=== PATIENT | female | born 1985 | race African-American/Black ===

== ENCOUNTER 2022-05-16 09:05 | Emergency (ER) | payer SELFPAY ==
[2022-05-16 09:11] VITALS: BP 120/71; PULSE 72; RESP 16; TEMP 36.4; O2SAT 100
--- NOTE | 2022-05-16 09:19 | ED.SKABFB ---
HPI - Skin/Abscess/Foreign Bdy General Chief complaint: Skin/Abscess/Foreign Body Stated complaint: rash/moscoso Time Seen by Provider: 05/16/22 09:19 Source: patient Mode of arrival: ambulatory Limitations: no limitations History of Present Illness HPI narrative: 37-year-old female presented for complaint of skin lesions to left lateral knee since yesterday. She states she is concerned she has monkeypox. Reports headache. Denies fatigue, fever, lymph node swelling or myalgia. Lesions are mildly itchy, no pain or drainage. No other lesions to body. Denies recent sexual contact. MD complaint: rash Related Data Home Medications Medication Instructions Recorded Confirmed norgestimate 0.25 mg-ethinyl 1 tablet PO DAILY 05/16/22 05/16/22 estradiol 35 mcg tablet (Sprintec (28)) Allergies Allergy/AdvReac Type Severity Reaction Status Date / Time No Known Allergies Allergy Mild Verified 05/16/22 09:10 Review of Systems Review of Systems: CONSTITUTIONAL: Denies body aches, fever, chills, or sweats. EYES: Denies visual changes, redness, or discharge. ENT: Denies rhinorrhea, congestion, sore throat, or otalgia. CARDIOVASCULAR: Denies chest pain, palpitations, or edema. RESPIRATORY: Denies cough or dyspnea. GASTROINTESTINAL: Denies abdominal pain, nausea, vomiting, or diarrhea. GENITOURINARY: Denies dysuria or hematuria. SKIN: reports rash, itching MUSCULOSKELETAL: Denies back pain, joint pain, or myalgia. NEUROLOGIC: Denies numbness, tingling, or weakness. [facility] Social History Social History Alcohol intake: current Comments At time of signature, I have reviewed and agree with nursing past medical, surgical, social and family history unless otherwise noted. Please see nursing chart for further information. There is no relevant family history pertinent to the presenting complaint Exam Narrative: GENERAL: Well-appearing EYES: conjunctivae clear, and EOMI. ENT: Mucous membranes moist. Oropharynx without edema, erythema or lesions. NECK: Supple. No lymphadenopathy CHEST: Clear to auscultation. No respiratory distress. HEART: Regular rate and rhythm. SKIN: Warm, dry. Left lateral knee with 4 pinpoint raised skin lesions c/w folliculitis, no redness, induration, fluctuance or drainage; nontender NEURO: Alert and oriented x3. PSYCH:tearful Course Course Emergency Course: Patient is aware of diagnosis, understands and agrees to treatment plan. Anticipatory guidance given. Patient agrees to follow-up as directed and is aware of reasons to seek care at the emergency department. Portions of this record may have been created with voice recognition software Level of Care: Express Care Visit Vital Signs Vital signs: Vital Signs Temperature 97.6 F 05/16/22 09:11 Pulse Rate 72 05/16/22 09:11 Respiratory Rate 16 05/16/22 09:11 Blood Pressure 120/71 05/16/22 09:11 Pulse Oximetry 100 05/16/22 09:11 Oxygen Delivery Room Air 05/16/22 09:11 Temperature 97.6 F 05/16/22 09:11 Pulse Rate 72 05/16/22 09:11 Respiratory Rate 16 05/16/22 09:11 Blood Pressure 120/71 05/16/22 09:11 Pulse Oximetry 100 05/16/22 09:11 Oxygen Delivery Room Air 05/16/22 09:11 Reviewed MDM - Skin/Abscess/Foreign Bdy MDM Narrative Medical decision making narrative: Does not appear at this time to be erythema multiforme, bullous, SJS, TEN, or monkeypox. Provided reassurance and supportive measures. Patient looks well. Instructed patient to go to nearest ER immediately for any worsening symptoms including but not limited to: fever, spreading rash, pain, sore throat, headache, dizziness, chest pain, trouble breathing, or any symptoms concerning to the patient. Differential Diagnosis Differential diagnosis: Likely abscess of skin or subcutaneous tissue, urticaria, herpes zoster, cellulitis and contact dermatitis Discharge Plan Discharge Clinical Imp
== END 2022-05-16 09:38 | disposition home or self-care (01) ==
PROVIDERS: Emergency Provider Nurse Practitioner Family
DX: L73.9 Follicular disorder, unspecified (principal); E28.2 Polycystic ovarian syndrome
CPT/HCPCS: 99211; G0463

== ENCOUNTER 2024-12-29 14:27 | Emergency (ER) | payer OTHER, SELFPAY ==
--- NOTE | ~2024-12-29 | CT_ITS ---
History: Migraine PROCEDURE: CT head without contrast. COMPARISON: None TECHNIQUE: Axial imaging of the head performed from the skull base to the vertex without IV contrast. Sagittal a nd coronal reformations obtained. DLP: 681 mGy-cm FINDINGS: The ventricles are normal in size, shape and position. There is no mass, mass effect or midline shift. There is no abnormal extra-axial fluid collection or intracranial hemorrhage. Visualized paranasal sinuses are clear. The mastoid air cells are well aerated. No acute displaced fractures within the overlying cranium. Impression: No acute intracranial hemorrhage or suspicious mass effect. Reviewed, dictated and finalized at location A. Impression: No acute intracranial hemorrhage or suspicious mass effect.
[2024-12-29 14:35] VITALS: BP 150/85; PULSE 80; RESP 20; TEMP 36.2; O2SAT 98
[2024-12-29 15:12] VITALS: BP 133/95; PULSE 79; RESP 14; TEMP 36.6; O2SAT 100
[2024-12-29 15:18] VITALS: O2SAT 100
[2024-12-29 15:22] LABS: Basophils Percent Auto 0.7 % (0.2-1.2); Eosinophils Absolute Auto 0.2 K/mm3 (0-0.3); Eosinophils Percent Auto 2.6 % (0-4.4); Hemoglobin 12.8 g/dL (12.0-15.0); Immature Granulocyte Absolute 0.01 K/mm3 (0.00-0.031); Immature Granulocyte Percent A 0.2 % (0-0.5); Lymphocytes Absolute Auto 2.88 K/mm3 (0.9-3.2); Lymphocytes Percent Auto 49.5 % (18.3-44.2); Mean Corpuscular HGB Conc 32.8 g/dl (32-36); Mean Corpuscular Hemoglobin 29.5 pg (26-34); Mean Corpuscular Volume 89.9 fl (80-100); Monocytes Absolute Auto 0.4 K/mm3 (0.1-0.6); Neutrophils Absolute Auto 2.3 K/mm3 (1.3-6.7); Platelet Count Result 254 k/mm3 (150-375); Red Blood Count 4.34 M/mm3 (4.2-5.4); Red Cell Distribution Width 12.4 % (11.5-14.5); White Blood Count 5.8 K/mm3 (4.5-10.0)
[2024-12-29 15:34] LABS: Alanine Aminotransferase 14 U/L (6-35); Albumin Level 4.4 g/dL (3.5-5.1); Alkaline Phosphatase 48 U/L (38-126); Anion Gap 11 mmol/L (4-12); Aspartate Amino Transferase 23 U/L (14-36); Bilirubin,Total 0.4 mg/dL (0.2-1.3); Blood Urea Nitrogen 9 mg/dL (7-17); Carbon Dioxide 25 mmol/L (22-30); Chloride 101 mmol/L (98-107); Estimated CRCL calculation 96 ml/min; Estimated Glomerular Filt Rate > 60; Glucose 98 mg/dL (65-110); Partial Thromboplastin Time 25.9 Seconds (22.3-36.8); Potassium 3.8 mmol/L (3.4-5.0); Prothrombin Time 13.6 Seconds (11.1-14.7); Sodium 137 mmol/L (137-145)
[2024-12-29 15:39] LABS: BEDSIDEPREGUCG Negative (Negative)
[2024-12-29 15:42] VITALS: PULSE 69
[2024-12-29] MEDS: PROCHLORPERAZINE EDISYLATE 10 MG/2 ML VIAL IV PUSH (15:42)
[2024-12-29] MEDS: diphenhydrAMINE HCl INJ 50 MG/ML VIAL IV PUSH (15:42)
[2024-12-29] MEDS: SODIUM CHLORIDE 0.9% IV 1,000 ML 999 ML IV CONT (15:42)
[2024-12-29 15:43] VITALS: BP 121/75; PULSE 74; RESP 16; O2SAT 100
--- OUTSIDE RECORDS SUMMARY | 2024-12-29 15:54 | XMS_ITS | Clinical Summary ---
Author Organization [facility] Address [address] [place] [address] Care Team Providers Care Accounting Methods Analyst Name Role Phone No, Physician Primary Care Provider [phone] Allergies Active Allergy Reactions Criticality Noted Date Comments [place] Seed Swelling Medium 06/24/2017 Medications norgestimate-eth inyl estradioL (Ortho-Cyclen, 28,) 0.25-35 mg-mcg per tablet Take 1 tablet by mouth daily . Skip placebos. Take active pills only. 84 tablet 4 03/29/2024 5 Active Active Problems No known active problems Immunizations Immunization Administration Dates Next Due Hep A, Adult 09/19/2015,02/26/2015,03/18/2008 ,12/30/2006 Surgical History Surgery Date Site/Laterality Comments FRACTURE SURGERY 03/29/2019 - 04/28/2019 Medical History Medical History Date Comments Known health problems: none Family History Medical History Relation Name Comments Alcohol abuse Father Sy Lewis Alcohol abuse Maternal Grandfather Edd Julien Cancer Maternal Grandmother Amanda Julien Clotting disorder Maternal Grandmother Amanda Ashleyp ton Hypertension Mother Vonniemarissa Julien Hypertension Mother's Sister Latanya Ashleypton Allergy (severe) Sister Estee Lewis Relation Name Status Comments Father Sy Lewis Maternal Grandfather Edd Ashleypton Maternal Grandmother Amandarima Ashleypton Mother Vonnie Julien Mother's Sister Latanya Julien Sister Estee Lewis Social History Tobacco Use Types Packs/Day Years Used Date Smoking Tobacco: Former Cigarettes Q uit: 03/29/2002 Smokeless Tobacco: Never Personal Safety Answer Date Recorded Getting School Help Needed Not on file 11/09 Comments No Sex and Gender Information Value Date Recorded Sex Assigned at Not on file Legal Sex Female 12:14 PM CDT Gender Identity Female 08/30/2021 7:30 AM COMMERCIAL FRONT LOAD DRIVER Sexual Orientation Straight 08/30/2021 7: 30 AM COMMERCIAL FRONT LOAD DRIVER Obstetrics History Last Filed Vital Signs Vital Sign Reading Time Taken Comments Blood Pressure 104/70 03/29/2024 1:40 PM CDT Pulse 86 02/05/2024 9:42 AM CDT Temperature 36.7 C (98 F) 02/05/2024 9:42 AM CDT Respiratory Rate 15 02/05/2024 9:42 AM CDT Oxygen Saturation 99% 02/05/2024 9:42 AM CDT Inhaled Oxygen Concentration - - Weight 78.9 kg (174 lb) 03/29/2024 1:40 PM CDT Height 175.3 cm (5' 9.02 ) 03/29/2024 1:40 PM CD T Body Mass Index 25.68 03/29/2024 1:40 PM CDT Plan of Treatment Health Maintenance Due Date Last Done Comments Depression Screening 1985 Hepatitis C Screening 1985 DTaP/Tdap/Td Vaccine (1 - Tdap) 01/18/1996 Varicella Vaccines (1 of 2 - 13+ 2-dose series) 1998 Hepatitis B Screening 2003 Influenza Vaccine (#1) 2024 Cervical Cancer Screening 10/03/2024 10/03/2021 Regular Well Visit/Exam 18-64 03/29/2025 03/29/2024, 12/02/2022, 10/03/2021, Additional history exists HPV Vaccines Aged Out No longer eligi ble based on patient's age to complete this topic Pneumococcal vaccine <65 Aged Out No longer eligible based on patient's age to complete this topic Procedures Procedure Name Priority Date/Time Associated Diagnosis Comments PAP AND HIGH RISK HPV, REFLEX TO GENOTYPING Routine 10/03/2021 3:32 PM COMMERCIAL FRONT LOAD DRIVER Well woman exam with routine gynecological exam from Last 3 Months or Most Recently Relevant to Health Maintenance Results * Pap and High Risk HPV, reflex to Genotyping (10/03/2021 3:32 PM COMMERCIAL FRONT LOAD DRIVER) Swab (Pap test) 10/03/2021 3 :32 PM COMMERCIAL FRONT LOAD DRIVER 10/04/2021 1:50 PM COMMERCIAL FRONT LOAD DRIVER Narrative PATHOLOGY [facility] - 10/09/2021 10:52 AM COMMERCIAL FRONT LOAD DRIVER EPIC results best viewed via link to PDF [address] [address] Tele: Aline Dai MD - Earth Science Technician CYTOLOGY REPORT Note to Patients: This report may contain a detailed description of human tissue sent by a health care provider to the laboratory for pathologic evaluation. The content of this report is essential for diagnosis and may provide important critical findings. This information may be unfamiliar to patients to review without a medical professional present. It is advised that the patient review this report in the presence of a health care provider who can answer questions and explain the details. Patient Name: JUSTIN LEWIS Address: [address] [place] [address] Gender: F : 1985 (Age: 36) Service: Location: [facility] : [id number] Hospital #: [id number] Patient Type: [facility] SPECIMEN Taken: 10/03/2021 Reported: 10/09/2021 Physician(s): Cassandra Ortiz MD FINAL DIAGNOSIS: Specimen Type: - ThinPrep Pap and HPV w/ reflex Genotyping Statement of Specimen Adequacy: Source: Cervical/Endocervical - Satisfactory for interpretation - Endocervical /Transformation Zone component present - Case screened using computer assisted imaging technology General Categorization: - Negative for intraepithelial lesion or malignancy cad/10/09/2021 10:52 Autumn Corea M.S., SANTI (ASCP) Report Reviewed and Electronically Signed By Autumn Corea M.S., SANTI (ASCP) Clerical Data Follow A; G0145 DIAGNOSIS COMMENT: Ancillary Testing: HPV High Risk Group (16, 18, 31, 33, 35, 39, 45, 51, 52, 56, 58, 59, 66 and 68) - Not Detected Reference Range: Not Detected This test was performed using the TAMIKO 4800 CLINICAL DIAGNOSIS AND HISTORY Last Menstrual Period: 09/28/2021 Menstrual History: Routine Checkup Contraceptive History: Control Pill REPORT IMAGES AND/OR SCANNED DOCUMENTS ONLY VIEWABLE IN PDF FORMAT The Pap test is a screening test used to aid in the detection of cervical cancer and its precursors. It should not be the sole means by which malignant and premalignant lesions are diagnosed. Both false negative and false positive results may occur. It also has poor sensitivity for the detection of endometrial lesions and should not be used to evaluate suspected endometrial abnormalities. For these reasons it is most important to obtain Pap tests at regular intervals, as recommended by your physician or nurse practitioner. Cassandra Ortiz MD LAB CYTOLOGY ORDERABLES [facility] Result PATHOLOGY [facility] Laboratory Receiving [address] [place] [address] from Last 3 Months or Most Recently Relevant to Health Maintenance Insurance Care Teams Accounting Methods Analyst Relationship Specialty Start Date End Date No, Physician PCP - General 05/05/17
--- OUTSIDE RECORDS SUMMARY | 2024-12-29 15:54 | XMS_ITS | Referral Summary ---
Author Organization [facility] Address [address] [place] [address] Care Court Operations Clerk Name Role Phone No, Physician Primary Care Provider [phone] Allergies Active Allergy Reactions Criticality Noted Date Comments [place] Seed Swelling Medium 06/24/2017 Medications norgestimate-eth inyl estradioL (Ortho-Cyclen, 28,) 0.25-35 mg-mcg per tablet Take 1 tablet by mouth daily . Skip placebos. Take active pills only. 84 tablet 4 03/29/2024 Active Active Problems No known active problems Immunizations Immunization Administration Dates Next Due Hep A, Adult 09/19/2015,02/26/2015,03/18/2008 ,12/30/2006 Social History Tobacco Use Types Packs/Day Years Used Date Smoking Tobacco: Former Cigarettes Q uit: 03/29/2002 Smokeless Tobacco: Never Personal Safety Answer Date Recorded Getting School Help Needed Not on file 11/09 Comments No Sex and Gender Information Value Date Recorded Sex Assigned at Not on file Legal Sex Female 12:14 PM CDT Gender Identity Female 08/30/2021 7:30 AM MARKETING PRODUCTION SPECIALIST Sexual Orientation Straight 08/30/2021 7: 30 AM MARKETING PRODUCTION SPECIALIST Last Filed Vital Signs Vital Sign Reading [...] 03/29/2024 1:40 PM CDT Plan of Treatment Not on file Procedures Procedure Name Priority Date/Time Associated Diagnosis Comments PAP AND HIGH RISK HPV, REFLEX TO GENOTYPING Routine 10/03/2021 3:32 PM MARKETING PRODUCTION SPECIALIST Well woman exam with routine gynecological exam from Last 3 Months or Most Recently Relevant to Health Maintenance Results * Pap and High Risk HPV, reflex to Genotyping (10/03/2021 3:32 PM MARKETING PRODUCTION SPECIALIST) Swab (Pap test) 10/03/2021 3 :32 PM MARKETING PRODUCTION SPECIALIST 10/04/2021 1:50 PM MARKETING PRODUCTION SPECIALIST Narrative PATHOLOGY [facility] - 10/09/2021 10:52 AM MARKETING PRODUCTION SPECIALIST EPIC results best viewed via link to PDF [address] [address] Tele: Aline Dai MD - Manager Business Development Hospice CYTOLOGY REPORT Note to Patients: This report [...] the details. Patient Name: JUSTIN LEWIS Address: [address] [place] [id number] Gender: F : 1985 (Age: 36) Service: Location: [facility] #: [id number] Patient Type: [facility] SPECIMEN Taken: 10/03/2021 Reported: 10/09/2021 Physician(s): Cassandra Ortiz MD FINAL DIAGNOSIS: Specimen Type: - ThinPrep Pap and HPV w/ reflex Genotyping Statement of Specimen Adequacy: Source: Cervical/Endocervical - Satisfactory for interpretation - Endocervical /Transformation Zone component present - Case screened using computer assisted imaging technology General Categorization: - Negative for intraepithelial lesion or malignancy cad/10/09/2021 10:52 Autumn Corea M.S., ASNTI (ASCP) Report Reviewed and Electronically Signed By [...] practitioner. Cassandra Ortiz MD LAB CYTOLOGY ORDERABLES [facility] Result PATHOLOGY [facility] Laboratory Receiving [address] [place] [address] from Last 3 Months or Most Recently Relevant to Health Maintenance Insurance [facility] Address: [address] [place] [id number] [facility] [employer] Address: [address] [address] Operations Clerk Relationship Specialty Start Date End Date No, Physician PCP - General 05/05/17
[2024-12-29] MEDS: KETOROLAC 15 MG/ML VIAL (*BKC) IV PUSH (16:05)
--- NOTE | 2024-12-29 16:05 | ED_ITS ---
HPI - General Adult General Chief complaint: Neuro Symptoms/Deficit Stated complaint: blurred vision Time Seen by Provider: 12/29/24 15:02 History of Present Illness HPI narrative: 39-year-old female presents to the emergency department for evaluation for intermittent numbness and tingling with associated headache. Patient states that approximately 215 she was having some tingling in her left hand the progressed to tingling around her mouth this resolved and she had tingling on her left face. She states she then developed a headache. Patient states the numbness and tingling all resolved at 245. At time of evaluation patient states she still does still have a mild headache but denies any other neurologic symptoms. Patient denies any prior history of LA or CVA. Patient denies any history of diabetes, hypertension, high cholesterol. Related Data Home Medications ?Medication ?Instructions ?Recorded ?Confirmed ?Last Taken ?Type norgestimate 0.25 mg-ethinyl 1 tablet PO DAILY 05/16/22 05/16/22 Unknown History estradiol 0.035 mg tablet (Sprintec (28)) Allergies Allergy/AdvReac Type Severity Reaction Status Date / Time sunflower seed Allergy Severe Swelling Verified 05/16/22 09:50 of Lip/Tongue/Throat Review of Systems 2 Review of Systems: All systems reviewed & are unremarkable except as noted in HPI and below PMFSH Social History Social History Alcohol intake: current Exam 2 Narrative: APPEARANCE: Well appearing, no pain, no distress, well-nourished. HEAD: normocephalic, atraumatic. EYES: PERRLA/EOMI, conjunctivae clear. NOSE: Normal no drainage EARS:TMS clear with good light reflex. THROAT: Pharynx clear, no exudate. NECK: Supple. No adenopathy, no masses. RESPIRATORY: Airway patent, respirations nonlabored. Clear to auscultation bilaterally, no rales, rhonchi, wheezing. CARDIOVASCULAR: Regular rate and rhythm without murmurs rubs or gallops. ABDOMINAL: Soft, nontender, nondistended, normal bowel sounds MUSCULOSKELETAL: Moves all extremities. Strength/ROM intact, No edema, No calf tenderness. NEURO: Alert. Cranial nerves II through XII intact. Good gait. Good coordination SKIN: Warm, dry. Normal Color Course Vital Signs Vital signs: Vital Signs Temperature 97.1 F L 12/29/24 14:35 Pulse Rate 80 12/29/24 14:35 Respiratory Rate 20 12/29/24 14:35 Blood Pressure 150/85 H 12/29/24 14:35 Pulse Oximetry 98 12/29/24 14:35 Oxygen Delivery Room Air 12/29/24 14:35 Temperature 97.8 F 12/29/24 15:12 Pulse Rate 63 12/29/24 16:56 Respiratory Rate 15 12/29/24 16:56 Blood Pressure 118/71 12/29/24 16:56 Pulse Oximetry 100 12/29/24 16:56 Oxygen Delivery Room Air 12/29/24 14:35 Medical Decision Making MDM Narrative Medical decision making narrative: 39-year-old female presents emergency department for evaluation for headache with intermittent tingling her left hand and left face. Patient is neurologically intact at time of evaluation. Head CT was negative. On re- evaluation patient states he does feel significantly improved. Patient was treated with IV Toradol, IV Compazine, IV Benadryl and IV fluids. Patient was updated results of workup patient was comfortable plan for discharge and close follow-up. Differential Diagnosis Differential Diagnosis: CVA, TIA, migraine, complex migraine, dehydration, sinusitis Vital Signs Vital Signs: Vital Signs Temperature 97.1 F L 12/29/24 14:35 Pulse Rate 80 12/29/24 14:35 Respiratory Rate 20 12/29/24 14:35 Blood Pressure 150/85 H 12/29/24 14:35 Pulse Oximetry 98 12/29/24 14:35 Oxygen Delivery Room Air 12/29/24 14:35 Temperature 97.8 F 12/29/24 15:12 Pulse Rate 63 12/29/24 16:56 Respiratory Rate 15 12/29/24 16:56 Blood Pressure 118/71 12/29/24 16:56 Pulse Oximetry 100 12/29/24 16:56 Oxygen Delivery Room Air 12/29/24 14:35 Lab Data Lab results reviewed: Yes I reviewed the patient's lab results. 12/29/24 15:16 12/29/24 15:16 Labs: Lab Results 12/29/24 12/29/24 Range/Units 15:16 15:37 WBC 5.8 (4.5-10.0) K/mm3 RBC 4.34 (4.2-5.4) M/mm3 Hgb 12.8 (12.0-15.0) g/dL Hct 39.0 (37.0-47.0) % MCV 89.9 (80-100) fl MCH 29.5 (26-34) pg MCHC 32.8 (32-36) g/dl RDW 12.4 (11.5-14.5) % Plt Count 254 (150-375) k/mm3 MPV 10.0 (7.4-10.4) fl Immature Gran % (Auto) 0.2 (0-0.5) % Neut % (Auto) 40.0 L (45.5-73.1) % Lymph % (Auto) 49.5 H (18.3-44.2) % Atlantic % (Auto) 7.0 (2.6-8.5) % Eos % (Auto) 2.6 (0-4.4) % Baso % (Auto) 0.7 (0.2-1.2) % Lymph # (Auto) 2.88 (0.9-3.2) K/mm3 [place] # (Auto) 0.4 (0.1-0.6) K/mm3 Eos # (Auto) 0.2 (0-0.3) K/mm3 Baso # (Auto) 0.0 (0.0-0.1) K/mm3 Abs Immat Gran (auto) 0.01 (0.00-0.031) K/mm3 Absolute Neuts (auto) 2.3 (1.3-6.7) K/mm3 Absolute Nucleated RBC 0.000 (0.0-0.012) K/mm3 Nucleated RBC % 0.0 (0.0-0.2) % PT 13.6 (11.1-14.7) Seconds INR 1.0 APTT 25.9 (22.3-36.8) Seconds Sodium 137 (137-145) mmol/L Potassium 3.8 (3.4-5.0) mmol/L Chloride 101 (98-107) mmol/L Carbon Dioxide 25 (22-30) mmol/L Anion Gap 11 (4-12) mmol/L BUN 9 (7-17) mg/dL Creatinine 0.71 (0.7-1.0) mg/dL Estim Creat Clear Calc 96 ml/min Estimated GFR > 60 (59 - ) Glucose 98 (65-110) mg/dL Calcium 9.0 (8.4-10.2) mg/dL Total Bilirubin 0.4 (0.2-1.3) mg/dL AST 23 (14-36) U/L ALT 14 (6-35) U/L Alkaline Phosphatase 48 (38-126) U/L Total Protein 8.0 (6.3-8.2) g/dL Albumin 4.4 (3.5-5.1) g/dL POC Urine HCG, Qual Negative (Negative) Imaging Data Radiologist's impression: Impressions Head CT 12/29/24 15:29 Impression: No acute intracranial hemorrhage or suspicious mass effect. Discharge Plan Discharge Clinical Impression: Migraine Patient Disposition: Home, Self-Care Condition: Stable Instructions: Antibiotic Form, Migraine Headache (ED) Additional Instructions: Have close follow-up with your primary care physician. If you have any worsening symptoms then please call or return to the emergency department. Patient Language: Kiswahili Prescriptions: No Action norgestimate-ethinyl estradiol [Sprintec (28)] 0.25-35 mg-mcg tablet 1 tablet PO DAILY Follow-up/Referrals: UNKNOWN,DOCTOR [Primary Care Provider] -
--- OUTSIDE RECORDS SUMMARY | 2024-12-29 16:35 | XMS_ITS | Referral Summary ---
Author Organization [facility] Address [address] [place] [address] Care Team Providers Care Factory Laborer Name Role Phone No, Physician Primary Care Provider [phone] Allergies Active Allergy Reactions Criticality Noted Date Comments [place] Seed Swelling Medium 06/24/2017 Medications norgestimate-eth inyl [...] CDT Gender Identity Female 08/30/2021 7:30 AM BAR HELPER Sexual Orientation Straight 08/30/2021 7: 30 AM BAR HELPER Last Filed Vital Signs Vital Sign Reading [...] REFLEX TO GENOTYPING Routine 10/03/2021 3:32 PM BAR HELPER Well woman exam with routine gynecological exam from Last 3 Months or Most Recently Relevant to Health Maintenance Results * Pap and High Risk HPV, reflex to Genotyping (10/03/2021 3:32 PM BAR HELPER) Swab (Pap test) 10/03/2021 3 :32 PM BAR HELPER 10/04/2021 1:50 PM BAR HELPER Narrative PATHOLOGY [facility] - 10/09/2021 10:52 AM BAR HELPER EPIC results best viewed via link to PDF [address] [address] Tele: Aline Dai MD - Operations Welder CYTOLOGY REPORT Note to Patients: This report [...] the details. Patient Name: JUSTIN LEWIS Address: [address] [place] [id number] Gender: F : 1985 (Age: 36) Service: Location: [facility] #: [id number] Patient Type: [facility] [...] practitioner. Cassandra Ortiz MD LAB CYTOLOGY ORDERABLES [facility] hospital Result PATHOLOGY [facility] Laboratory Receiving [address] [place] [address] from Last 3 Months or Most Recently Relevant to Health Maintenance Insurance [facility] Care Teams Factory Laborer Relationship Specialty Start Date End Date No, Physician PCP - General 05/05/17
--- OUTSIDE RECORDS SUMMARY | 2024-12-29 16:35 | XMS_ITS | Clinical Summary ---
Author Organization [facility] Address [address] [place] [address] Care Team Providers Care Pediatric Sports Medicine Specialist Name Role Phone No, Physician Primary Care Provider [phone] Allergies Active Allergy Reactions Criticality Noted Date Comments [place] Seed Swelling Medium 06/24/2017 Medications norgestimate-eth inyl [...] CDT Gender Identity Female 08/30/2021 7:30 AM MEDICAL ASSISTANT SECRETARY Sexual Orientation Straight 08/30/2021 7: 30 AM MEDICAL ASSISTANT SECRETARY Obstetrics History Last Filed Vital Signs Vital [...] REFLEX TO GENOTYPING Routine 10/03/2021 3:32 PM MEDICAL ASSISTANT SECRETARY Well woman exam with routine gynecological exam from Last 3 Months or Most Recently Relevant to Health Maintenance Results * Pap and High Risk HPV, reflex to Genotyping (10/03/2021 3:32 PM MEDICAL ASSISTANT SECRETARY) Swab (Pap test) 10/03/2021 3 :32 PM MEDICAL ASSISTANT SECRETARY 10/04/2021 1:50 PM MEDICAL ASSISTANT SECRETARY Narrative PATHOLOGY [facility] - 10/09/2021 10:52 AM MEDICAL ASSISTANT SECRETARY EPIC results best viewed via link to PDF [address] [address] Tele: Aline Dai MD - Tractor Drill Operator CYTOLOGY REPORT Note to Patients: This report [...] the details. Patient Name: JUSTIN LEWIS Address: [address] [place] [address] Gender: F : 1985 (Age: 36) Service: Location: [facility] : [id number] Hospital #: [id number] Patient Type: [facility] [place] Taken: 10/03/2021 Reported: 10/09/2021 Physician(s): Cassandra [...] practitioner. Cassandra Ortiz MD LAB CYTOLOGY ORDERABLES [facility] Result PATHOLOGY [facility] Laboratory Receiving [address] [place] [address] from Last 3 Months or Most Recently Relevant to Health Maintenance Insurance [facility] [employer]O Address: [address] [address] [facility] [employer] Address: [facility] [address] [place] [address] Care Teams Pediatric Sports Medicine Specialist Relationship Specialty Start Date End Date No, Physician PCP - General 05/05/17
[2024-12-29 16:56] VITALS: BP 118/71; PULSE 63; RESP 15; O2SAT 100
== END 2024-12-29 17:07 | disposition home or self-care (01) ==
PROVIDERS: Emergency Provider Emergency Medicine
DX: G43.909 Migraine, unspecified, not intractable, without status migrainosus (principal)
CPT/HCPCS: 36415; 70450; 80053; 81025; 85025; 85610; 85730; 96361; 96374; 96375; 99284; J0780; J1200; J1885; J7030